=== PATIENT | male | born 1970 | race Caucasian/White ===

== ENCOUNTER 2018-04-27 10:56 | Emergency (ER) | payer SELFPAY ==
[2018-04-27 11:15] VITALS: BP 153/93
--- NOTE | 2018-04-27 11:57 | UC ---
UC General HPI - HPI Summary HPI Summary: Acute , Burning Abdomen pain---has been taking "bottles of Ibuprofen" 5 -6 alcohol drinks 2 days ago---denies further alcohol use (sister in room and evaluation is questionable) states he did take opiates ( RX from Dr. Clayton) for back pain for years, got addicted but is completely off of them now - History of Current Complaint Chief Complaint: UCGeneralIllness Stated Complaint: MOUTH COMPLAINT Time Seen by Provider: 04/27/18 11:48 Hx Obtained From: Patient Onset/Duration: Gradual Onset, Lasting Weeks, Worse Since - past 24 hours Timing: Constant Pain Intensity: 5 Pain Location at: diffuse abdomen, throat, esophagus,mouth Associated Signs & Symptoms: Positive: Abdominal Pain - Allergy/Home Medications Allergies/Adverse Reactions: Allergies Allergy/AdvReac Type Severity Reaction Status Date / Time hydrocodone Allergy Dizziness Verified 04/27/18 11:16 Home Medications: Home Medications NK [No Home Medications Reported] 04/27/18 [History Confirmed 04/27/18] PMH/Surg Hx/FS Hx/Imm Hx Previously Healthy: No - Surgical History Surgical History: Yes Surgery Procedure, Year, and Place: Left Knee Surgery- 2004. Chronic back pain. opiate dependence in self reported remission - Family History Known Family History: Positive: None - Social History Occupation: Unemployed Lives: With Family Alcohol Use: Occasionally Alcohol Amount: 6 alcohol beverages 02/23/18 Substance Use Type: None Smoking Status (MU): Heavy Every Day Tobacco Smoker Type: Cigarettes Amount Used/How Often: 10cig/day Household Exposure Type: Cigarettes Review of Systems Constitutional: Chills, Fatigue Skin: Negative Eyes: Negative ENT: Sore Throat Respiratory: Negative Cardiovascular: Negative Gastrointestinal: Abdominal Pain, Vomiting, Nausea Genitourinary: Negative Motor: Negative Neurovascular: Negative Musculoskeletal: Arthralgia Neurological: Negative Psychological: Negative Is Patient Immunocompromised?: No All Other Systems Reviewed And Are Negative: Yes Physical Exam Triage Information Reviewed: Yes Appearance: Well-Nourished, Ill-Appearing, Pain Distress Vital Signs: Initial Vital Signs Temp 98.8 F 04/27/18 11:06 Pulse 72 04/27/18 11:06 Resp 22 04/27/18 11:06 BP 153/93 04/27/18 11:06 Pulse Ox 99 04/27/18 11:06 Vital Signs Reviewed: Yes Eye Exam: Normal Eyes: Positive: Conjunctiva Clear ENT Exam: Normal ENT: Positive: Normal ENT inspection, Hearing grossly normal. Negative: Trismus , Muffled voice, Hoarse voice Dental Exam: Normal Neck exam: Normal Neck: Positive: Supple, Nontender Respiratory Exam: Normal Respiratory: Positive: Chest non-tender, Lungs clear, Normal breath sounds, No respiratory distress, No accessory muscle use Cardiovascular Exam: Normal Cardiovascular: Positive: RRR, No Murmur, Pulses Normal, Brisk Capillary Refill Abdominal Exam: Other Abdomen Description: Positive: No Organomegaly, Guarding, Other: - left upper and lower abdomen pain. Negative: Nontender, CVA Tenderness (R), CVA Tenderness (L), Distended, McBurney's Point Tenderness Bowel Sounds: Positive: Present Musculoskeletal Exam: Normal Musculoskeletal: Positive: Strength Intact, ROM Intact, No Edema Neurological Exam: Normal Neurological: Positive: Alert, Muscle Tone Normal Psychological Exam: Normal Skin Exam: Normal Course/Dx - Course Course Of Treatment: npo-TO ED FOR FURTHER EVALUATION - Differential Dx - Multi-Symptom Provider Diagnoses: Acute Abdomen Pain - Physician Notifications Time Discussed With Above Provider: 12:37 - SANIYA OLIVO Discharge - Sign-Out/Discharge Documenting (check all that apply): Patient Departure - Discharge Plan Condition: Fair Disposition: HOME-RECOMMEND TO ED Patient Education Materials: Acute Abdominal Pain (ED) Referrals: No Primary Care Phys,NOPCP [Primary Care Provider] - Additional Instructions: GO DIRECTLY TO [facility] FOR ADDITIONAL CARE AND TREATMENT NOTHING TO EAT OR DRINK - Billing Disposition and Condition Condition: FAIR Disposition: Home-Recommend to ED Attestation Statement User Type: Provider - I was available for consult. This patient was seen by the PUJA. The patient was not presented to, seen by, or examined by me. -Gus
[2018-04-27] MEDS ORDERED: Al Hydrox/Mg Hydrox/Simet LIQ* 30 ML UDC PO ONE (11:58)
[2018-04-27] MEDS ORDERED: Lidocaine 2% VISCOUS* 15 ML UDC PO ONE (11:59)
== END 2018-04-27 12:40 | disposition home health service (06) ==
LOC: UCCORT 10:56
DX: R10.9 Unspecified abdominal pain (principal); Z88.5 Allergy status to narcotic agent; F17.210 Nicotine dependence, cigarettes, uncomplicated
CPT/HCPCS: 81003; 99202; A9270-GY; G0463